=== PATIENT | female | born 1995 | race Caucasian/White ===

== ENCOUNTER → 2018-01-25 | Outpatient (REF) | payer OTHER ==
[2018-01-25 13:02] LABS: APPEARANCE, URINE CLEAR (CLEAR); BACTERIA, URINE AUTO NEGATIVE (NEGATIVE); BILIRUBIN, URINE AUTO NEGATIVE (NEGATIVE); BLOOD, URINE BLOOD NEGATIVE (NEGATIVE); COLOR, URINE STRAW (YELLOW); GLUCOSE, URINE (UA) AUTO NEGATIVE (NEGATIVE); KETONE, URINE AUTO NEGATIVE (NEGATIVE); LEUKOCYTE ESTERASE, URINE AUTO NEGATIVE (NEGATIVE); MUCUS, URINE SMALL (NEGATIVE); NITRITE, URINE AUTO NEGATIVE (NEGATIVE); PROTEIN, URINE AUTO NEGATIVE (NEGATIVE); RBC, URINE AUTO 0 /HPF (0-3); SPECIFIC GRAVITY URINE AUTO 1.012 (1.002-1.035); SQUAMOUS EPITHELIAL CELL UR AU 0 /HPF (0-6); UROBILINOGEN, URINE AUTO 0.2 mg/dL (0.0-2.0); WBC, URINE AUTO 1 /HPF (0-3)
[2018-01-25 13:30] LABS: BASO % 0.4 % (0.0-1.0); EOS # 0.2 10^3/uL (0.0-0.50); EOS % 2.6 % (0.0-3.0); HEMATOCRIT 37.5 % (36.0-47.0); HEMOGLOBIN 11.9 g/dl (12.0-15.5); IMMATURE GRANULOCYTE % 0.2 % (0-3.0); LYMPH # 1.6 10^3/uL (1.5-6.5); MEAN CORPUSCULAR HEMOGLOBIN 28.1 pg (27.0-33.0); MEAN CORPUSCULAR HGB CONC 31.7 g/dl (32.0-36.5); MEAN CORPUSCULAR VOLUME 88.7 fl (80.0-96.0); MONO # 0.4 10^3/uL (0.0-0.8); MONO % 7.5 % (0.0-5.0); NEUTROPHILS # 3.5 10^3/uL (1.8-7.7); NEUTROPHILS % 61.3 % (36.0-66.0); PLATELET COUNT, AUTOMATED 289 10^3/uL (150-450); RED BLOOD COUNT 4.23 10^6/uL (4.00-5.40); RED CELL DISTRIBUTION WIDTH 12.2 % (11.5-14.5); WHITE BLOOD COUNT 5.7 10^3/uL (4.0-10.0)
[2018-01-25 13:59] LABS: ALBUMIN 3.7 GM/DL (3.2-5.2); ALBUMIN/GLOBULIN RATIO 0.97 (1.00-1.93); ALKALINE PHOSPHATASE 65 U/L (45-117); ALT/SGPT 18 U/L (12-78); ANION GAP 5 MEQ/L (8-16); AST/SGOT 15 U/L (7-37); BILIRUBIN,TOTAL 0.4 MG/DL (0.2-1.0); BLOOD UREA NITROGEN 12 MG/DL (7-18); CALCIUM LEVEL 8.8 MG/DL (8.5-10.1); CARBON DIOXIDE LEVEL 26 MEQ/L (21-32); CHLORIDE LEVEL 109 MEQ/L (98-107); CHOLESTEROL LEVEL 240 MG/DL (<200); CREATININE FOR GFR 0.92 MG/DL (0.55-1.30); GLOMERULAR FILTRATION RATE > 60.0 (>60); GLUCOSE, FASTING 87 MG/DL (70-100); HDL CHOLESTEROL 71 MG/DL (>40); LDL CHOLESTEROL 158.8 MG/DL (<100); NON-HDL-C 169 MG/DL; POTASSIUM SERUM 4.2 MEQ/L (3.5-5.1); SODIUM LEVEL 140 MEQ/L (136-145); TOTAL PROTEIN 7.5 GM/DL (6.4-8.2); TRIGLYCERIDES LEVEL 51 MG/DL (<150)
== END ==
LOC: M LAB REF 12:13
DX: Z13.220 Encounter for screening for lipoid disorders (principal); R10.811 Right upper quadrant abdominal tenderness; Z13.29 Encounter for screening for other suspected endocrine disorder

== ENCOUNTER → 2018-03-18 | Outpatient (REF) | payer OTHER ==
[2018-03-18 13:33] LABS: FREE T4 1.01 NG/DL (0.76-1.46)
== END ==
LOC: M LAB REF 12:22
DX: E78.4 Other hyperlipidemia (principal)

== ENCOUNTER → 2018-03-25 | Outpatient (REF) | payer OTHER | LOC: M LAB REF 16:36 | DX: Z12.4 Encounter for screening for malignant neoplasm of cervix (principal) ==

== ENCOUNTER → 2018-08-28 | Outpatient (CLI) | payer OTHER ==
[2018-08-28 18:21] LABS: COMPLEMENT C3 126 MG/DL (90-180); COMPLEMENT C4 27 MG/DL (10-40); IMMUNOGLOBULIN A 259 MG/DL (70-400); IMMUNOGLOBULIN E 13.2 IU/ML (<100); IMMUNOGLOBULIN G 1110 MG/DL (681-1648); IMMUNOGLOBULIN M 133 MG/DL (40-230)
[2018-09-02 08:06] LABS: ALPHA 1 ANTITRYPSIN 141 mg/dL (90-200)
[2018-09-02 08:06] LABS: D001-IgE D pteronyssinus <0.10 kU/L (Class 0); E001-IgE Cat Epith/Dander < 0.10 kU/L (Class 0); E005-IgE Dog Dander < 0.10 kU/L (Class 0); F002-IgE Milk < 0.10 kU/L (Class 0); F004-IgE Wheat < 0.10 kU/L (Class 0); F013-IgE Peanut < 0.10 kU/L (Class 0); F014-IgE Soybean < 0.10 kU/L (Class 0); F026-IgE Pork < 0.10 kU/L (Class 0); F027-IgE Beef < 0.10 kU/L (Class 0); F245-IgE Egg, Whole < 0.10 kU/L (Class 0); FX02-IgE Food Mix (Sea Foods) Negative (.); G002-IgE Bermuda Grass < 0.10 kU/L (Class 0); G008-IgE Kentucky Bluegrass < 0.10 kU/L (Class 0); M001-IgE Penicillium chrysogen < 0.10 kU/L (Class 0); M002 IgE Cladosporium herbaru < 0.10 kU/L (Class 0); M003 IgE Aspergillus fumigatu < 0.10 kU/L (Class 0); M006-IgE Alternaria alternata < 0.10 kU/L (Class 0); T001-IgE Maple/Box Elder < 0.10 kU/L (Class 0); T003-IgE Common Silver Birch < 0.10 kU/L (Class 0); T006-IgE Cedar, Mountain < 0.10 kU/L (Class 0); T007-IgE Oak, White < 0.10 kU/L (Class 0); T008-IgE Elm, American < 0.10 kU/L (Class 0); T015-IgE Ash, White < 0.10 kU/L (Class 0); T041-IgE Hickory, White < 0.10 kU/L (Class 0); T070-IgE White Mulberry < 0.10 kU/L (Class 0); W001-IgE Ragweed, Short < 0.10 kU/L (Class 0); W009-IgE Plantain, English < 0.10 kU/L (Class 0); W014-IgE Pigweed, Rough < 0.10 kU/L (Class 0); W018-IgE Sheep Sorrel < 0.10 kU/L (Class 0)
== END ==
LOC: M WUC 15:43
DX: R05 Cough (principal); H10.45 Other chronic allergic conjunctivitis; J30.1 Allergic rhinitis due to pollen; J30.89 Other allergic rhinitis
CPT/HCPCS: 82785

== ENCOUNTER → 2018-10-21 | Outpatient (REF) | payer OTHER ==
[2018-10-21 10:09] LABS: ALBUMIN 3.7 GM/DL (3.2-5.2); ALT/SGPT 16 U/L (12-78); BILIRUBIN,TOTAL 0.6 MG/DL (0.2-1.0); BLOOD UREA NITROGEN 9 MG/DL (7-18); CALCIUM LEVEL 9.1 MG/DL (8.5-10.1); CARBON DIOXIDE LEVEL 26 MEQ/L (21-32); CHLORIDE LEVEL 106 MEQ/L (98-107); CREATININE FOR GFR 0.84 MG/DL (0.55-1.30); GLOMERULAR FILTRATION RATE > 60.0 (>60); GLUCOSE, FASTING 80 MG/DL (70-100); POTASSIUM SERUM 4.2 MEQ/L (3.5-5.1); SODIUM LEVEL 138 MEQ/L (136-145); TOTAL PROTEIN 7.6 GM/DL (6.4-8.2)
[2018-10-21 11:21] LABS: PTH INTACT 22.7 PG/ML (18.5-88.0); TOTAL 25(OH) VITAMIN D 20.3 NG/ML (30.0-100.0)
== END ==
LOC: M SFHCPLAZ 08:44
PROVIDERS: ATTEND Physician Assistant Medical
DX: E55.9 Vitamin D deficiency, unspecified (principal)
CPT/HCPCS: 36415; 80053; 82306; 83970; G0463

== ENCOUNTER → 2019-02-18 | Outpatient (CLI) | payer OTHER ==
--- NOTE | 2019-02-18 14:40 | REP ---
Clinical: Nontraumatic right foot pain. Technique: AP, lateral, bilateral oblique views right foot Findings: The osseous structures and joint spaces are intact and normal. There is no evidence for acute fracture or dislocation. Surrounding soft tissues are unremarkable. No subcutaneous emphysema or radiodense foreign body. Impression: Normal right foot series. No acute fracture or dislocation. Electronically Signed by Abdelrahman Chowdary MD 02/18/2019 02:30 P
--- NOTE | 2019-02-18 14:40 | REP ---
Clinical: Left shoulder pain . Technique: Internal rotation, external rotation, and Y left shoulder Findings: No acute fracture or dislocation. The acromioclavicular and glenohumeral joints are intact. No periarticular calcifications or degenerative changes are appreciated. Sub acromial space is normal. Surrounding soft tissues are unremarkable. Impression: Normal left shoulder radiographs. Electronically Signed by Abdelrahman Chowdary MD 02/18/2019 02:31 P
--- NOTE | 2019-02-18 15:02 | REP ---
Clinical: Right-sided abdominal pain. Technique: Upright view of the chest with supine and upright views of the abdomen and pelvis. Findings: Frontal upright view of the chest demonstrates no acute cardiopulmonary process or free air below the diaphragm to suspect pneumoperitoneum. Supine and upright views of the abdomen and pelvis demonstrate nonspecific bowel gas pattern without obstruction or perforation. No organomegaly. No abnormal calcifications. Skeletal structures normal for age. Impression: Nonspecific bowel gas pattern. Electronically Signed by Abdelrahman Chowdary MD 02/18/2019 02:53 P
== END ==
LOC: M SMT 13:00
PROVIDERS: ATTEND Physician Assistant Medical
DX: R10.9 Unspecified abdominal pain (principal); M79.671 Pain in right foot; M25.512 Pain in left shoulder

== ENCOUNTER → 2019-03-17 | Outpatient (CLI) | payer OTHER ==
--- NOTE | 2019-03-17 09:11 | REP ---
Clinical: Right upper quadrant and right flank pain. Technique: Cruz scale ultrasound using curved array transducer. Findings: The liver and pancreas are normal in contour, size, and echogenicity without focal hepatic or pancreatic lesions identified. The gallbladder is normal without gallstones, wall thickening or pericholecystic fluid. No biliary ductal dilatation is appreciated, and the common bile duct measures 2.1 mm diameter. Right kidney measures 10.3 x 4.1 x 3.8 cm and demonstrates moderate to significant hydronephrosis and dilatation to the renal pelvis/proximal ureter which appears to transition to normal caliber without evidence for renal or obstructing ureteral calculi. Findings may represent congenital ureteropelvic junction (UPJ) obstruction. Impression: 1. Findings involving the right kidney as described above suggest the possibility of congenital UPJ obstruction. Urology consultation is recommended for further investigation. 2. Normal appearance the remainder of the right upper quadrant. Electronically Signed by Abdelrahman Chowdary MD 03/17/2019 09:03 A
== END ==
LOC: M RAD 07:40
PROVIDERS: ATTEND Physician Assistant Medical
DX: N13.30 Unspecified hydronephrosis (principal); N28.89 Other specified disorders of kidney and ureter

== ENCOUNTER → 2019-03-25 | Outpatient (REF) | payer OTHER ==
[2019-03-25 16:03] LABS: BASO % 0.2 % (0.0-1.0); EOS # 0.1 10^3/uL (0.0-0.50); EOS % 0.6 % (0.0-3.0); HEMATOCRIT 39.4 % (36.0-47.0); HEMOGLOBIN 12.2 g/dl (12.0-15.5); LYMPH # 1.5 10^3/uL (1.5-6.5); LYMPH % 16.1 % (24.0-44.0); MEAN CORPUSCULAR HEMOGLOBIN 25.5 pg (27.0-33.0); MEAN CORPUSCULAR VOLUME 82.3 fl (80.0-96.0); MONO # 0.6 10^3/uL (0.0-0.8); MONO % 5.8 % (0.0-5.0); NEUTROPHILS # 7.3 10^3/uL (1.8-7.7); PLATELET COUNT, AUTOMATED 299 10^3/uL (150-450); RED BLOOD COUNT 4.79 10^6/uL (4.00-5.40); WHITE BLOOD COUNT 9.4 10^3/uL (4.0-10.0)
[2019-03-25 16:06] LABS: ALBUMIN 4.1 GM/DL (3.2-5.2); ALT/SGPT 15 U/L (12-78); BILIRUBIN,TOTAL 0.4 MG/DL (0.2-1.0); BLOOD UREA NITROGEN 9 MG/DL (7-18); CALCIUM LEVEL 9.6 MG/DL (8.5-10.1); CARBON DIOXIDE LEVEL 27 MEQ/L (21-32); CHLORIDE LEVEL 106 MEQ/L (98-107); CREATININE FOR GFR 0.96 MG/DL (0.55-1.30); GLOMERULAR FILTRATION RATE > 60.0 (>60); GLUCOSE, FASTING 97 MG/DL (70-100); POTASSIUM SERUM 4.1 MEQ/L (3.5-5.1); SODIUM LEVEL 139 MEQ/L (136-145)
== END ==
LOC: M SFHCPLAZ 14:04
PROVIDERS: ATTEND Physician Assistant Medical
DX: N13.5 Crossing vessel and stricture of ureter without hydronephrosis (principal)

== ENCOUNTER → 2019-04-01 | Outpatient (CLI) | payer OTHER ==
[~2019-04-01] MED LIST: ISOVUE-370 76% 100ML VIAL (Q9967) As Ordered ONE; METAL LOCK LOOP XX ONE
--- NOTE | 2019-04-01 11:14 | REP ---
CT UROGRAM: CT abdomen and pelvis without and with IV contrast with multiphase postcontrast imaging. No oral contrast. HISTORY: Hydronephrosis. Sonography March 17, 2019 suspicious for congenital right UPJ obstruction. CT CONTRAST DOSE: 100 mL of intravenous Isovue 370. CT FINDINGS: Preliminary digital spooler operator radiograph is unremarkable. The lung bases are clear. The liver and the spleen are normal in size homogeneous in texture on pre- and postcontrast images. No adrenal lesion is observed on either side. There is a tiny accessory splenule in the left upper quadrant. The pancreas shows no abnormality. There is no evidence of hydronephrosis on the left. No intrarenal calculus is seen on either side. There is significant cortical atrophy involving the right kidney. There is moderate right-sided hydronephrosis. There is some diffuse thickening of the wall of the renal pelvis. Delayed scan images demonstrate partial filling of the intrarenal collecting system and calyceal clubbing is observed mild in degree in the right kidney. The right renal pelvis is dilated to the ureteral pelvic junction but not beyond consistent with UPJ obstruction. No calculus or mass is seen. There is no evidence of obstructive uropathy on the left. No filling defect is seen in the collecting system. The left kidney measures 13.4 cm in length and the right kidney measures 10.1 cm. No bladder mass is observed. There uterus is retroverted and retroflexed but otherwise unremarkable. No ovarian lesion is seen. A normal appendix is observed. No renal mass lesion is observed. 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 There is diffuse mural thickening in the dilated renal pelvis. Some calyceal clubbing and moderate renal cortical atrophy is observed on the right side. No ureteral or other urinary tract calculus is seen. No mass lesion is observed. Electronically Signed by Magan Pulido MD 04/01/2019 12:37 P
== END ==
LOC: M RAD 08:52
PROVIDERS: ATTEND Nurse Practitioner Family
DX: N13.1 Hydronephrosis with ureteral stricture, not elsewhere classified (principal)

== ENCOUNTER → 2019-05-05 | Outpatient (CLI) | payer OTHER ==
[~2019-05-05] MED LIST changes: +FUROSEMIDE 20 MG/2 ML VIAL (J1940) As Ordered ONE; -ISOVUE-370 76% 100ML VIAL (Q9967) As Ordered ONE; -METAL LOCK LOOP XX ONE
--- NOTE | 2019-05-05 11:25 | REP ---
REASON FOR EXAM: History of hydronephrosis. PRIORS: None. After the intravenous administration of 8.4 millicuries of technetium 99m MAG3, a renal flow and scan was obtained. Dynamic renal scintigraphy shows prompt visualization of the left kidney compared to the right. This is seen on the flow portion of the exam. Dynamic renal scanning shows poor visualization of the right kidney throughout the exam with normal appearing washout characteristics of the left kidney. Evaluation of the functional curves shows [id number] activity of the left kidney 2 minutes and t-1/2 valve left kidney 10 minutes. These values are normal. Low counts in the right kidney throughout the exam preclude accurate assessment of functional curves. The t-1/2 value is non-calculable. The differential analysis shows 83.7% of the counts coming from the left kidney and 16.3% of the counts coming from the right kidney. Pre- and post void scintigraphy shows no changes. There is increased radiotracer throughout the right renal collecting system. IMPRESSION: 1. Normally functioning left kidney. 2. Nonfunctioning or nearly nonfunctioning right kidney or severely delayed right renal function compared to the left. A combination of hydronephrosis and chronic renal changes are suspected but need to be correlated clinically. Electronically Signed by Julius Barros DO 05/05/2019 03:30 P
== END ==
LOC: M RAD 07:30
PROVIDERS: ATTEND Nurse Practitioner Family
DX: N13.30 Unspecified hydronephrosis (principal)

== ENCOUNTER → 2019-05-10 | Outpatient (CLI) | payer OTHER ==
[~2019-05-10] MED LIST changes: +BIOT2500 PO; +BUSP5TA PO; +COLA100C5 PO; +COLLAGEN PO; +CVS1CAP5 PO; +FLON1SPR; -FUROSEMIDE 20 MG/2 ML VIAL (J1940) As Ordered ONE; +LORA-436 PO; +MONT10TA2 PO; +SM G150T PO; +TRAM50TA2 PO; +VITA100066 PO
[2019-05-10 17:16] LABS: BLOOD UREA NITROGEN 10 MG/DL (7-18); CARBON DIOXIDE LEVEL 27 MEQ/L (21-32); CHLORIDE LEVEL 104 MEQ/L (98-107); CREATININE FOR GFR 0.86 MG/DL (0.55-1.30); GLOMERULAR FILTRATION RATE > 60.0 (>60); GLUCOSE, FASTING 83 MG/DL (70-100); POTASSIUM SERUM 3.9 MEQ/L (3.5-5.1); SODIUM LEVEL 138 MEQ/L (136-145)
[2019-05-10 17:17] LABS: HEMOGLOBIN 12.2 g/dl (12.0-15.5); MEAN CORPUSCULAR HEMOGLOBIN 27.6 pg (27.0-33.0); MEAN CORPUSCULAR HGB CONC 32.1 g/dl (32.0-36.5); PLATELET COUNT, AUTOMATED 311 10^3/uL (150-450); RED BLOOD COUNT 4.42 10^6/uL (4.00-5.40); WHITE BLOOD COUNT 7.1 10^3/uL (4.0-10.0)
--- NOTE | 2019-05-10 17:34 | REP ---
HISTORY: Preoperative evaluation. COMPARISON: Frontal view of the chest obtained as part of an abdominal series 02/18/2019. FINDINGS: The superior mediastinal structures are midline. The cardiac silhouette is unremarkable in size, shape and position. The diaphragmatic surfaces of the lungs are regular and the costophrenic angles are clear. The pulmonary matamoros are clear. The imaged osseous structures are intact. IMPRESSION: There is no acute cardiopulmonary disease. Electronically Signed by Julius Barros DO 05/11/2019 12:36 P
[2019-05-10 17:35] LABS: INR 1.1; PROTHROMBIN TIME 13.9 SECONDS (11.8-14.0)
[2019-05-10 17:36] LABS: PARTIAL THROMBOPLASTIN TIME 35.7 SECONDS (25.0-38.4)
== END ==
LOC: M SMT 14:18
PROVIDERS: ATTEND Urology
DX: Z01.818 Encounter for other preprocedural examination (principal); R10.9 Unspecified abdominal pain; N13.30 Unspecified hydronephrosis; N26.1 Atrophy of kidney (terminal)
CPT/HCPCS: 36415; 71046; 80048; 85027; 85610; 85730; G0463

== ENCOUNTER 2019-06-01 08:30 | Inpatient (IN) | payer OTHER ==
[~2019-06-01] VITALS: Ht 170.2 cm; Wt 69.3 kg
[~2019-06-01 08:30] MED LIST changes: -COLA100C5 PO; -CVS1CAP5 PO; +LR 1,000 ML IV ONE; -TRAM50TA2 PO; +ceFAZolin SOD 2 GM in IV 1 EA IV ONE
[2019-06-01] MEDS ORDERED: ONDANSETRON 4MG/2ML VIAL (J2405) As Ordered ONE (09:40)
[2019-06-01] MEDS ORDERED: propofoL 200 MG/20 ML VIAL As Ordered ONE (09:40)
[2019-06-01] MEDS ORDERED: dexameTHASONE 4 MG/ML 1ML VIAL (J1100) As Ordered ONE ×2 (09:40→12:41)
[2019-06-01] MEDS ORDERED: LIDOCAINE 2% INJ 100 MG/5 ML SDV (FOR ANES.) As Ordered ONE (09:40)
[2019-06-01] MEDS ORDERED: ROCURONIUM BROMIDE 50 MG/5 ML VIAL As Ordered ONE ×2 (09:40→14:09)
[2019-06-01] MEDS ORDERED: fentaNYL 250 MCG/5 ML INJECTION (J3010) As Ordered ONE (09:41)
[2019-06-01] MEDS ORDERED: MIDAZOLAM INJ 2 MG/2 ML VIAL (J2250) As Ordered ONE (09:42)
[2019-06-01] MEDS: NS 1,000 ML IV SCH (10:49)
[2019-06-01 10:57] LABS: URINE PREG TEST NEGATIVE (NEGATIVE)
[2019-06-01] MEDS ORDERED: ONDANSETRON 4MG/2ML VIAL (J2405) IV PRN ×2 (11:00→17:15)
[2019-06-01] MEDS ORDERED: ACETAMINOPHEN TAB 650MG DOSE (2X325MG) PO PRN (11:00)
[2019-06-01] MEDS ORDERED: traMADol 50 MG TAB PO PRN ×2 (11:00→17:15)
[2019-06-01] MEDS ORDERED: CVS1CAP5 PO (11:07)
[2019-06-01] MEDS ORDERED: LIDOCAINE 1% SDV INJ 30 ML VIAL As Ordered ONE (11:58)
[2019-06-01] MEDS ORDERED: BUPIVACAINE HCL 0.25% 30 ML VIAL As Ordered ONE (11:58)
[2019-06-01] MEDS ORDERED: LACRILUBE (AKWA TEARS) OPHTH OINT 3.5 GM As Ordered ONE (14:08)
[2019-06-01] MEDS ORDERED: ACETAMINOPHEN 1000MG 100ML IV BTL (OFIRMEV) (J0131 PER 10MG) As Ordered ONE (14:08)
[2019-06-01] MEDS ORDERED: HYDROmorphone HCL 2 MG/ML 1ML VIAL (J1170) As Ordered ONE (15:44)
--- NOTE | 2019-06-01 17:03 | ROOPDOC ---
[facility] Report Of Operation Report of Operation DATE OF PROCEDURE: 06/01/19 PREPROCEDURE DIAGNOSES: Atrophic Kidney. POSTPROCEDURE DIAGNOSES: Atrophic Kidney. PROCEDURE: Right Robotic-assisted Laparoscopic Simple Nephrectomy. SURGEON: Dimas Arteaga MD TELEVISION ACTOR: yAala Monroy NP ANESTHESIA: General. OPERATIVE INDICATIONS: This is a 24 year old female who with an atrophic right kidney who has had chronic right flank pain for several years. She was brought to the operating room toady for the above procedure for treatment of her pain. DESCRIPTION OF PROCEDURE: The patient was brought to the operating room and general anesthesia was induced. Prophylactic antibiotics were infused. A Santiago catheter was placed under sterile conditions. The patient was then placed in the left lateral decubitus position. All pressure points were appropriately padded and an axillary roll was placed. She was secured to the table with tape. The patient was then prepped and draped in the usual sterile fashion. The initial incision was for an 8mm port in line with the 11th rib along the lateral rectus margin. A Veress needle was then utilized to achieve the pneumoperitoneum. An 8mm port was then placed in through this incision and through which the camera was inserted. There were no injuries from Veress needle placement or initial trocar placement. The remaining ports were then placed under vision. The right hand robotic port was placed along the costal margin. A 5 mm port was placed just inferior to the xyphoid for access for a liver retractor. The 15 mm parking assistant port was placed just inferior and medial to the camera port. Two left hand robotic ports were placed, with one between the anterior-superior iliac spine and the umbilicus and the other one medial to that one, along the lateral rectus margin. The robot was then docked. We began by lifting up the liver with a laparoscopic locking Allis clamp. Next the right colon was dissected off of Gerota's fascia. We then Kocherized the duodenum. At this point the inferior vena cava (IVC) was identified. Next, a plane was made onto the lateral aspect of the IVC and this was carried cephalad until the renal vein was seen. Posterior to this, the main renal artery was seen. This was dissected, ligated with Weck clips, and then transected in between, leaving 2 clips on the stay side. Just distal to the main renal artery a smaller artery was seen. This was dissected and then ligated in similar fashion. It was then transected in between clips. Once all of the arteries were ligated and transected, the renal vein was dissected. It was then ligated and transected using a robotic 45mm vascular stapler. We then dissected the adrenal gland off the upper pole of the kidney and spared it. The kidney was then carefully dissected on all sides until it was only connected by the right ureter. The right ureter was then ligated with Weck clips and transected in between. At this point the kidney was completely free. The kidney was then placed in a large Endocatch bag for future retrieval. We then checked for hemostasis and it appeared excellent. Shi hemostatic agent was then placed in the nephrectomy bed and along the inferior portion of the adrenal gland. Once satisfied with hemostasis, the robot was undocked. We then used a Lora Donald fascial closure device to place a #0 Vicryl free tie through the fascia of the 15 mm parking assistant port site. We then connected the two left hand robotic port site incisions. We then dissected down to the fascia. The fascia was then extended using electrocautery. The muscle was bluntly spread. The specimen was then extracted through this incision. It was handed off the table to send for pathology. We then closed the fascia of the extraction incision using a running #0 Vicryl suture. At this point, the abdomen was reinsufflated and we looked back in with the camera and there was no bleeding underneath the extraction site. No abdominal contents were caught within the closure either. We then removed all the ports under direct vision and there was no bleeding from any of the port sites. At this point, the previously placed #0 Vicryl free tie was tied down and all the incisions were thoroughly irrigated. The subcutaneous tissue of the extraction incision was then reapproximated using interrupted #3-0 Vicryl suture. We then closed the skin of each site using a running #4-0 subcuticular Monocryl stitch. Local anesthetic was then applied to each incision and Dermabond was then applied and this marked the conclusion of the procedure. The patient was then taken out of the left lateral decubitus position, awakened from anesthesia and transported to the recovery room in stable condition. ESTIMATED BLOOD LOSS: Approximately 5 mL. COMPLICATIONS: None. SPECIMEN: Right Kidney. PLAN: The patient will be admitted to the hospital postoperatively and she will be discharged home once her renal function is stable and she is tolerating regu lar diet. DIMAS ARTEAGA MD Jun 01, 2019 17:03
[2019-06-01] MEDS ORDERED: fentaNYL 100 MCG/2 ML INJECTION (J3010) IV PRN (17:15)
[2019-06-01] MEDS ORDERED: LR 1,000 ML IV SCH (17:15)
[2019-06-01 17:21] LABS: HEMATOCRIT 33.9 % (36.0-47.0); HEMOGLOBIN 10.7 g/dl (12.0-15.5); MEAN CORPUSCULAR HEMOGLOBIN 26.8 pg (27.0-33.0); MEAN CORPUSCULAR HGB CONC 31.6 g/dl (32.0-36.5); PLATELET COUNT, AUTOMATED 272 10^3/uL (150-450); RED BLOOD COUNT 3.99 10^6/uL (4.00-5.40); WHITE BLOOD COUNT 14.5 10^3/uL (4.0-10.0)
[2019-06-01] MEDS: HYDROMORPHONE HCL 0.5 MG/ 0.5 ML SYRINGE (J1170 PER 1) IV PRN ×2 (17:33→17:42)
[2019-06-01 17:45] LABS: BLOOD UREA NITROGEN 16 MG/DL (7-18); CALCIUM LEVEL 8.5 MG/DL (8.5-10.1); CARBON DIOXIDE LEVEL 23 MEQ/L (21-32); CHLORIDE LEVEL 106 MEQ/L (98-107); CREATININE FOR GFR 1.01 MG/DL (0.55-1.30); GLOMERULAR FILTRATION RATE > 60.0 (>60); GLUCOSE, FASTING 135 MG/DL (70-100); SODIUM LEVEL 138 MEQ/L (136-145)
[2019-06-01] MEDS: MORPHINE 4 MG/ML 1ML VIAL/SYRINGE (J2270) IV PRN (18:20)
[2019-06-01 18:29] VITALS: BP 108/67
[2019-06-01] MEDS ORDERED: KETOROLAC 30 MG/ML VIAL (J1885) IV ONE (20:00)
[2019-06-01] MEDS: MONTELUKAST 10 MG TAB PO SCH (20:23)
[2019-06-01] MEDS: DOCUSATE SODIUM 100 MG CAP PO SCH (20:23)
[2019-06-01] MEDS: LORATADINE 10 MG TAB PO SCH (20:23)
[2019-06-01] MEDS: FLUTICASONE PROP 0.05% NASAL SPRAY 16 GM (FLONASE) NARES SCH (20:24)
[2019-06-01] MEDS: ceFAZolin SOD 1 GM in D5W MINI-BAG PLUS 50 ML IV SCH (20:26)
[2019-06-01 20:56] VITALS: BP 120/68
[2019-06-01 22:00] VITALS: BP 108/61
[2019-06-01] MEDS: traMADol 50 MG TAB PO PRN (22:31)
[2019-06-02] MEDS: NS 1,000 ML IV SCH (01:15)
[2019-06-02 02:00] VITALS: BP 111/70
[2019-06-02] MEDS: ceFAZolin SOD 1 GM in D5W MINI-BAG PLUS 50 ML IV SCH (04:18)
[2019-06-02] MEDS: traMADol 50 MG TAB PO PRN ×4 (04:18→23:44)
[2019-06-02 06:00] VITALS: BP 109/74
[2019-06-02 06:07] LABS: HEMATOCRIT 33.4 % (36.0-47.0); HEMOGLOBIN 10.7 g/dl (12.0-15.5); MEAN CORPUSCULAR HEMOGLOBIN 27.2 pg (27.0-33.0); PLATELET COUNT, AUTOMATED 334 10^3/uL (150-450); RED BLOOD COUNT 3.93 10^6/uL (4.00-5.40); WHITE BLOOD COUNT 16.6 10^3/uL (4.0-10.0)
[2019-06-02 06:23] LABS: BLOOD UREA NITROGEN 11 MG/DL (7-18); CALCIUM LEVEL 8.5 MG/DL (8.5-10.1); CARBON DIOXIDE LEVEL 25 MEQ/L (21-32); CHLORIDE LEVEL 107 MEQ/L (98-107); CREATININE FOR GFR 0.93 MG/DL (0.55-1.30); GLOMERULAR FILTRATION RATE > 60.0 (>60); GLUCOSE, FASTING 110 MG/DL (70-100); POTASSIUM SERUM 4.2 MEQ/L (3.5-5.1); SODIUM LEVEL 139 MEQ/L (136-145)
[2019-06-02] MEDS: MORPHINE 4 MG/ML 1ML VIAL/SYRINGE (J2270) IV PRN (06:25)
--- NOTE | 2019-06-02 07:48 | IPNPDOC ---
Subjective Review oF Systems Chief Complaint The patient is a 24-year-old female admitted with a reason for visit of Atrophic Kidney, Flank Pain. Events since Last Encounter No acute events o/n. Patient noting moderate pain in the right shoulder and abdomen. No n/v. No flatus yet. No f/c/ns. Objective Physical Examination General Exam: Alert, No Acute Distress ABDOMEN EXAM: Soft, Tenderness (mild right tenderness), Other (incisions clean/dry/intact) Skin Exam: Nl turgor and temperature Neuro Exam: Normal Speech Psych Exam: Mental status NL, Mood NL Other physical findings catheter draining clear urine Vital Signs/I&O Vital Signs Date Time Temp Pulse Resp B/P (MAP) Pulse Ox O2 Delivery O2 Flow Rate FiO2 06/02/19 06:25 20 06/02/19 06:00 97.6 75 109/74 (86) 99 2.0 I&O- Last 24 Hours up to 6 AM 06/02/19 06:00 Intake Total 3510 ml Output Total 1780 ml Balance 1730 ml Laboratory Data Labs 24H Laboratory Tests 2 06/01/19 10:45: Urine Test NEGATIVE 06/01/19 17:02: Nucleated Red Blood Cells % (auto) 0.0, Anion Gap 9, Glomerular Filtration Rate > 60.0, Blood Urea Nitrogen 16, Creatinine 1.01, Sodium Level 138, Potassium Level 4.0, Chloride Level 106, Carbon Dioxide Level 23, Calcium Level 8.5 06/02/19 05:44: Nucleated Red Blood Cells % (auto) 0.0, Anion Gap 7L, Glomerular Filtration Rate > 60.0, Blood Urea Nitrogen 11, Creatinine 0.93, Sodium Level 139, Potassium Level 4.2, Chloride Level 107, Carbon Dioxide Level 25, Calcium Level 8.5 CBC/BMP Laboratory Tests 06/01/19 17:02 Red Blood Count 3.99 L, Mean Corpuscular Volume 85.0, Mean Corpuscular Hemoglobin 26.8 L, Mean Corpuscular Hemoglobin Concent 31.6 L, Red Cell Distrib ution Width 13.7, Calcium Level 8.5 06/02/19 05:44 Red Blood Count 3.93 L, Mean Corpuscular Volume 85.0, Mean Corpuscular Hemoglobin 27.2, Mean Corpuscular Hemoglobin Concent 32.0, Red Cell Distribution Width 13.7, Calcium Level 8.5 Assessment/Plan Date Seen The patient was seen on 06/02/19. Patient Summary This is a 24 y/o F POD1 s/p R robotic simple nephrectomy. She is having moderate pain from residual gas from the pneumoperitoneum. Labs this morning are w/i normal limits. Good UOP. Plan/VTE VTE Prophylaxis Ordered?: Yes VTE Exclusion Mechanical Proph: N/A:VTE Prophy Ordered Plan/Urinary Catheter Urinary Catheter: D/C Santiago Plan - d/c Santiago - d/c IVF - ultram and toradol prn pain - strict I/Os - SCDs - ambulate - CLD -> ADAT - possible discharge home later today if pain is better controlled DIMAS ARTEAGA MD Jun 02, 2019 07:48
[2019-06-02] MEDS: DOCUSATE SODIUM 100 MG CAP PO SCH ×2 (08:15→20:11)
[2019-06-02] MEDS: KETOROLAC 30 MG/ML VIAL (J1885) IV PRN ×3 (08:16→22:04)
[2019-06-02] MEDS ORDERED: busPIRone 5 MG TAB PO SCH (09:00)
[2019-06-02 10:15] VITALS: BP 110/72
[2019-06-02 14:27] VITALS: BP 106/70
[2019-06-02] MEDS: FLUTICASONE PROP 0.05% NASAL SPRAY 16 GM (FLONASE) NARES SCH (20:11)
[2019-06-02] MEDS: LORATADINE 10 MG TAB PO SCH (20:11)
[2019-06-02] MEDS: MONTELUKAST 10 MG TAB PO SCH (20:11)
[2019-06-02] MEDS: SIMETHICONE 80 MG CHEW TAB PO PRN (20:31)
[2019-06-02 22:24] VITALS: BP 107/72
[2019-06-03] MEDS: SIMETHICONE 80 MG CHEW TAB PO PRN (04:15)
[2019-06-03 06:16] VITALS: BP 101/69
--- NOTE | 2019-06-03 07:39 | IPNPDOC ---
Subjective Review oF Systems Chief Complaint The patient is a 24-year-old female admitted with a reason for visit of Atrophic Kidney, Flank Pain. Events since Last Encounter No acute events o/n. Her pain is better this morning now that she has passed flatus. Denies n/v. Ambulating well. No f/c/ns. Objective Physical Examination General Exam: Alert, No Acute Distress ABDOMEN EXAM: Soft, Tenderness (mild right tenderness), Other (incisions clean/dry/intact) Skin Exam: Nl turgor and temperature Neuro Exam: Normal Gait, Normal Speech Psych Exam: Mental status NL, Mood NL Vital Signs/I&O Vital Signs Date Time Temp Pulse Resp B/P (MAP) Pulse Ox O2 Delivery O2 Flow Rate FiO2 06/03/19 06:47 16 06/03/19 06:16 98.2 77 101/69 (80) 100 06/02/19 06:00 2.0 I&O- Last 24 Hours up to 6 AM 06/03/19 06:00 Intake Total 3120 ml Output Total 775 ml Balance 2345 ml Assessment/Plan Date Seen The patient was seen on 06/03/19. Patient Summary This is a 24 y/o F POD2 s/p left robotic simple nephrectomy. She is doing much better this am. UOP has been very good. Plan/VTE VTE Prophylaxis Ordered?: Yes VTE Exclusion Mechanical Proph: N/A:VTE Prophy Ordered Plan - ultram prn pain - encourage PO hydration - strict I/Os - ambulate - incentive spirometry - regular diet - discharge home today DIMAS ARTEAGA MD Jun 03, 2019 07:39
[2019-06-03] MEDS ORDERED: COLA100C5 PO (07:46)
[2019-06-03] MEDS ORDERED: TRAM50TA2 PO (07:46)
[2019-06-03 08:14] LABS: HEMATOCRIT 30.8 % (36.0-47.0); HEMOGLOBIN 9.7 g/dl (12.0-15.5); MEAN CORPUSCULAR HEMOGLOBIN 27.2 pg (27.0-33.0); MEAN CORPUSCULAR HGB CONC 31.5 g/dl (32.0-36.5); MEAN CORPUSCULAR VOLUME 86.5 fl (80.0-96.0); PLATELET COUNT, AUTOMATED 291 10^3/uL (150-450); RED BLOOD COUNT 3.56 10^6/uL (4.00-5.40); WHITE BLOOD COUNT 9.2 10^3/uL (4.0-10.0)
[2019-06-03 08:27] LABS: BLOOD UREA NITROGEN 7 MG/DL (7-18); CALCIUM LEVEL 8.9 MG/DL (8.5-10.1); CARBON DIOXIDE LEVEL 28 MEQ/L (21-32); CHLORIDE LEVEL 105 MEQ/L (98-107); GLOMERULAR FILTRATION RATE > 60.0 (>60); GLUCOSE, FASTING 88 MG/DL (70-100); POTASSIUM SERUM 3.7 MEQ/L (3.5-5.1); SODIUM LEVEL 139 MEQ/L (136-145)
[2019-06-03] MEDS: DOCUSATE SODIUM 100 MG CAP PO SCH (09:13)
--- NOTE | 2019-06-03 19:52 | DSES ---
DATE OF ADMISSION: 06/01/2019 DATE OF DISCHARGE: 06/03/2019 ADMISSION DIAGNOSIS: Atrophic kidney. DISCHARGE DIAGNOSIS: Atrophic kidney. ADMITTING PHYSICIAN: Byron Simmons MD DISCHARGING PHYSICIAN: Byron Simmons MD PROCEDURE PERFORMED: Right robotic-assisted laparoscopic simple nephrectomy. HISTORY OF PRESENT ILLNESS: This is a 24-year-old female who was recently found to have a nonfunctioning atrophic right kidney. Based on the patient's symptoms, it appears that this kidney has been causing her chronic right flank pain. It was therefore recommended she undergo the above-listed procedure. She was admitted to the hospital postoperatively. HOSPITAL COURSE: The patient's postoperative course was for the most part unremarkable. On postoperative day one, all of her laboratories were within normal limits. Specifically, her hemoglobin was stable at 10.7 and her creatinine was stable at her baseline of 0.9. She did have a moderate amount of gas pain on postoperative day one and therefore was not discharged home at that time. She had her catheter removed and she voided without any difficulty. By postoperative day two, her gas pain was much improved. Her laboratories remained stable. Her vital signs were stable. She was tolerating a regular diet. She was ambulating well. She was therefore deemed ready for discharge home on postoperative day two. She was therefore discharged home with a plan for her to followup in the clinic in a few weeks for a postoperative visit.
== END 2019-06-03 09:45 | disposition home or self-care (01) | DRG 661 ==
LOC: M OR 10:24 → M MS5PR 18:00
PROVIDERS: ADMIT Urology; ATTEND Urology
PROC: 8E0W4CZ Robotic Assisted Procedure of Trunk Region, Percutaneous Endoscopic Approach (ICD-10-PCS; 2019-06-01)
PROC: 0TT04ZZ Resection of Right Kidney, Percutaneous Endoscopic Approach (ICD-10-PCS; principal; 2019-06-01 14:25)
DX: N26.1 Atrophy of kidney (terminal) (principal); J30.2 Other seasonal allergic rhinitis; R10.31 Right lower quadrant pain; F17.210 Nicotine dependence, cigarettes, uncomplicated; Z88.5 Allergy status to narcotic agent; Z88.8 Allergy status to other drugs, medicaments and biological substances; Z79.899 Other long term (current) drug therapy

== ENCOUNTER → 2019-06-23 | Outpatient (CLI) | payer OTHER ==
[~2019-06-23] MED LIST changes: +COLA100C5 PO; +CVS1CAP5 PO; -LR 1,000 ML IV ONE; +TRAM50TA2 PO; -ceFAZolin SOD 2 GM in IV 1 EA IV ONE
[2019-06-23 18:01] LABS: HEMATOCRIT 38.1 % (36.0-47.0); MEAN CORPUSCULAR HEMOGLOBIN 27.9 pg (27.0-33.0); MEAN CORPUSCULAR HGB CONC 31.5 g/dl (32.0-36.5); MEAN CORPUSCULAR VOLUME 88.6 fl (80.0-96.0); PLATELET COUNT, AUTOMATED 353 10^3/uL (150-450); WHITE BLOOD COUNT 6.3 10^3/uL (4.0-10.0)
[2019-06-23 18:02] LABS: BLOOD UREA NITROGEN 11 MG/DL (7-18); CALCIUM LEVEL 9.5 MG/DL (8.5-10.1); CARBON DIOXIDE LEVEL 29 MEQ/L (21-32); CHLORIDE LEVEL 105 MEQ/L (98-107); CREATININE FOR GFR 0.95 MG/DL (0.55-1.30); GLOMERULAR FILTRATION RATE > 60.0 (>60); GLUCOSE, FASTING 83 MG/DL (70-100); POTASSIUM SERUM 4.6 MEQ/L (3.5-5.1); SODIUM LEVEL 141 MEQ/L (136-145)
== END ==
LOC: M SMT 13:16
PROVIDERS: ATTEND Urology
DX: Z90.5 Acquired absence of kidney (principal)

== ENCOUNTER → 2021-02-28 | Outpatient (REF) | payer OTHER ==
[~2021-02-28] MED LIST changes: -LORA-436 PO; +LORA-930 PO; +MONT10TA10 PO; -MONT10TA2 PO
[2021-02-28 18:37] LABS: BASO % 0.5 % (0.0-1.0); EOS # 0.1 10^3/uL (0.0-0.5); EOS % 1.3 % (0.0-3.0); HEMOGLOBIN 12.7 g/dl (12.0-15.5); LYMPH # 2.2 10^3/uL (1.5-5.0); LYMPH % 25.5 % (24.0-44.0); MEAN CORPUSCULAR HGB CONC 31.8 g/dl (32.0-36.5); MEAN CORPUSCULAR VOLUME 88.3 fl (80.0-96.0); MONO # 0.6 10^3/uL (0.0-0.8); MONO % 6.8 % (2.0-8.0); NEUTROPHILS # 5.7 10^3/uL (1.5-8.5); NEUTROPHILS % 65.6 % (36.0-66.0); PLATELET COUNT, AUTOMATED 295 10^3/uL (150-450); RED BLOOD COUNT 4.53 10^6/uL (4.00-5.40); WHITE BLOOD COUNT 8.7 10^3/uL (4.0-10.0)
[2021-02-28 18:38] LABS: ALBUMIN 3.6 GM/DL (3.2-5.2); ALT/SGPT 19 U/L (12-78); BILIRUBIN,TOTAL 0.2 MG/DL (0.2-1.0); BLOOD UREA NITROGEN 16 MG/DL (7-18); CALCIUM LEVEL 9.3 MG/DL (8.5-10.1); CARBON DIOXIDE LEVEL 26 MEQ/L (21-32); CHLORIDE LEVEL 104 MEQ/L (98-107); CREATININE FOR GFR 0.86 MG/DL (0.55-1.30); FREE T4 1.01 NG/DL (0.76-1.46); GLOMERULAR FILTRATION RATE > 60.0 (>60); GLUCOSE, FASTING 78 MG/DL (70-100); MAGNESIUM LEVEL 2.4 MG/DL (1.8-2.4); POTASSIUM SERUM 4.6 MEQ/L (3.5-5.1); PTH INTACT 21.7 PG/ML (18.5-88.0); SODIUM LEVEL 138 MEQ/L (136-145); TOTAL PROTEIN 7.4 GM/DL (6.4-8.2)
== END ==
LOC: M SFHCPLAZ 15:30
PROVIDERS: ATTEND Physician Assistant Medical
DX: E55.9 Vitamin D deficiency, unspecified (principal); Z90.5 Acquired absence of kidney; J30.2 Other seasonal allergic rhinitis; F41.9 Anxiety disorder, unspecified